=== PATIENT | female | born 1980 | race Caucasian/White ===

== ENCOUNTER 2019-11-23 11:08 | Emergency (ER) | payer OTHER, MEDICAID, SELFPAY ==
[2019-11-23 11:21] VITALS: BP 127/85; PULSE 80; RESP 14; TEMP 36.8; O2SAT 98
--- NOTE | 2019-11-23 11:27 | DI.RAD.S_ITS ---
PROCEDURE: XR FOOT RT MIN 3V INDICATIONS: 5th R toe pain that radiates into foot after trauma TECHNIQUE: 3 views of the foot were acquired. COMPARISON: None. FINDINGS: Bones: There is a moderately displaced oblique fracture of the distal aspect of the proximal phalanx of the 5th digit. Soft tissues: No tibiotalar joint effusion. Achilles tendon appears normal. IMPRESSION: 5th digit fracture. Dictated by: Milton Delgado M.D. on 11/23/2019 at 11:52 Approved by: Milton Delgado M.D. on 11/23/2019 at 11:53
[2019-11-23] MEDS: HYDROCODONE/ACET 5/325 TABLET 1 TAB PO (12:31)
[2019-11-23] MEDS: ONDANSETRON 4 MG ODT SL (12:31)
[2019-11-23 12:52] VITALS: BP 125/83; PULSE 68; RESP 16; O2SAT 98
--- NOTE | 2019-11-23 19:03 | ED_ITS ---
HPI - Extremity Injury (Lower) <CINDY Monique - Last Filed: 11/23/19 23:37> General Chief Complaint: Extremity Injury, Lower Stated Complaint: broke toe, right foot Time Seen by Provider: 11/23/19 12:01 Source: patient Mode of arrival: Ambulatory Limitations: no limitations History of Present Illness HPI Narrative: This is a 38-year-old female, nonsmoker, who has noncontributing medical history presents to ED with chief complain of aspect of mid food and little toe bruise and pain and swelling to affected foot. Patient reports on Saturday night she accidentally hit affected foot on a shoe bench and possibly hooked affected 5th toe on a part of the bench and felt a snap. Patient noticed 5ht toe was deviated outward earlier which appears to be more straightened at this time with swellings. She had used Tylenol, Motrin, ice, and CBD and elevation without much improvement. Patient reports weight bearing and movements increases pain and she has been walking on medial aspect of the foot. Related Data Previous Rx's Medication Instructions Recorded hydrocodone-acetaminophen [Caro] 1 tab PO Q8H PRN #7 tab 11/23/19 ondansetron 4 mg PO BID-TID PRN #7 tab 11/23/19 Allergies Allergy/AdvReac Type Severity Reaction Status Date / Time oxycodone Allergy Severe Vomiting Verified 11/23/19 11:26 latex Allergy Mild Rash Verified 11/23/19 11:26 Review of Systems <CINDY Monique - Last Filed: 11/23/19 23:37> Review of Systems Narrative: General: Denies fever, chills, fatigue, malaise, sweats. Respiratory: Denies dyspnea, cough, wheezing, hemoptysis, sputum. Cardiovascular: Denies chest pain, palpitations, orthopnea, edema. Musculoskeletal: See HPI Skin: See HPI Neurologic: Denies weakness, headache, numbness, change in speech, confusion, seizures, incoordination. Patient History <CINDY Monique - Last Filed: 11/23/19 23:37> Medical History No significant past medical history (Acute) Surgical History No pertinent past surgical history (Acute) Social History Smoking Status: Never smoker Smoking Status: Never smoker alcohol intake frequency: 0-2 drinks per day Substance Use Type: does not use Exam <CINDY Monique - Last Filed: 11/23/19 23:37> Narrative Exam Narrative: General appearance: well developed, well nourished, in no acute distress. Head: normocephalic, atraumatic, no scalp lesions, non-tender. ENT: Hearing grossly intact. Nose without bleeding, purulent discharge. Airway patent. Neck/Thyroid: neck supple, full range of motion, no visible masses or meningeal signs. No JVD, non-tender without lymphadenopathy. Skin: no suspicious rashes, lesions over visible areas. Warm and dry and appropriate color for ethnicity. Heart: no clubbing, no cyanosis, no edema. Lungs: Breathing even and unlabored. No stridor. No accessory muscles used. Able to speak in full sentences. Chest: normal shape and expansion. Abdomen: non-obese, non-distended. Neurologic: alert and oriented. Cognitive exam, DEPUTY SHERIFF/INVESTIGATOR and PNS grossly intact on informal exam. Psych: good eye contact, normal affect. Initial Vital Signs Initial Vital Signs: Vital Signs Temperature 98.3 F 11/23/19 11:21 Pulse Rate 80 11/23/19 11:21 Respiratory Rate 14 11/23/19 11:21 Blood Pressure 127/85 11/23/19 11:21 Pulse Oximetry 98 11/23/19 11:21 Extrem Right lower extremity: ankle Details: normal to inspection, no edema and normal ROM; no tenderness and foot Details: abnormal to inspection, tenderness Location: of another digit Location: the 5th digit and of the mid foot, abnormal ROM of toe Details: pain with active ROM and pain with passive ROM, edema Location: of the dorsal foot, ecchymosis (little toe) and vascular exam Details: dorsalis pedis pulse present and normal capillary refill; no unusual warmth, no laceration and no puncture wound <Pauline Walker DO - Last Filed: 11/28/19 07:29> Initial Vital Signs Initial Vital Signs: Vital Signs Temperature 98.3 F 11/23/19 11:21 Pulse Rate 80 11/23/19 11:21 Respiratory Rate 14 11/23/19 11:21 Blood Pressure 127/85 11/23/19 11:21 Pulse Oximetry 98 11/23/19 11:21 Procedures <Ben DouglasNAHED [email or web address] - Last Filed: 11/23/19 23:37> Orthopedic Splinting/Casting Injury #1: Side: right Lower Extremity Injury Location: toe Lower Extremity Immobilizer: post-op shoe and becki tape Post splinting neuro exam: intact Post splinting vascular exam: intact Scores <Ben DouglasNAHED ruffinP - Last Filed: 11/23/19 23:37> GCS [place] coma scale eye opening: Spontaneous [place] coma scale verbal response: Orientated Mili coma scale motor response: Obey commands Mili coma scale total score: 15 Course <Ben Grullon [facility] - Last Filed: 11/23/19 23:37> Orders Ordered: Discontinued Medications Hydrocodone Bitart/Acetaminophen (Caro 5/325) 1 tab PO NOW ONE Stop: 11/23/19 12:19 Last Admin: 11/23/19 12:31 Dose: 1 tab Documented by: BILLY Ondansetron HCl (Zofran Odt) 4 mg SL NOW ONE Stop: 11/23/19 12:19 Last Admin: 11/23/19 12:31 Dose: 4 mg Documented by: BILLY Vital Signs Vital signs: Vital Signs - 8 hr 11/23/19 11:21 11/23/19 12:52 Temperature 98.3 F Pulse Rate 80 68 Respiratory Rate 14 16 Blood Pressure 127/85 125/83 Pulse Oximetry 98 98 <Pauline Walker DO - Last Filed: 11/28/19 07:29> Orders Ordered: Discontinued Medications Hydrocodone Bitart/Acetaminophen (Caro 5/325) 1 tab PO NOW ONE Stop: 11/23/19 12:19 Last Admin: 11/23/19 12:31 Dose: 1 tab Documented by: BILLY Ondansetron HCl (Zofran Odt) 4 mg SL NOW ONE Stop: 11/23/19 12:19 Last Admin: 11/23/19 12:31 Dose: 4 mg Documented by: BILLY Vital Signs Vital signs: Vital Signs - 8 hr 11/23/19 11:21 11/23/19 12:52 Temperature 98.3 F Pulse Rate 80 68 Respiratory Rate 14 16 Blood Pressure 127/85 125/83 Pulse Oximetry 98 98 MDM - Extremity Injury (Lower) <CINDY Monique - Last Filed: 11/23/19 23:37> Differential Diagnosis Differential diagnosis: Likely fracture of toe and other (foot fracture, contusion) Medical Records Attestation: I reviewed the patient's medical records. Imaging Data XR-Foot RT: Radiologist's Impression: [address] [address] XRay Report Signed Patient: Kyung Edwards MMR#: [id number] : 1980Acct:[id number] Age/Sex: 38 / FDate of Service: 11/23/19 Loc: ED Accession Number: [id number] Procedure: XR foot RT min 3V Ordering Provider: Pauline Walker D.O. PROCEDURE: XR FOOT RT MIN 3V INDICATIONS: 5th R toe pain that radiates into foot after trauma TECHNIQUE: 3 views of the foot were acquired. COMPARISON: None. FINDINGS: Bones: There is a moderately displaced oblique fracture of the distal aspect of the proximal phalanx of the 5th digit. Soft tissues: No tibiotalar joint effusion. Achilles tendon appears normal. IMPRESSION: 5th digit fracture. Dictated by: Milton Delgado M.D. on 11/23/2019 at 11:52 Approved by: Milton Delgado M.D. on 11/23/2019 at 11:53 [facility] Narrative Medical decision making narrative: This is a 38 year female who presents to ED with right foot little toe pain and bruise and mid foot pain after she accidentally hit the affected foot on a shoe bench 3 days ago. She had used RICE therapy with [id number] Motrin and Tylenol around the clock without much improvement. She was hoping to be seen by her primary care physician but unable to and she is here today. Foot x-ray test shows moderately displaced oblique fracture of the distal aspect of the proximal balance of 5th toe. Affected foot was becki-taped and provided post surgical orthoshoes. She declined cruthes at this time. Patient advised to use [id number] Tylenol or Motrin as needed for discomfort and Caro for severe pain along narcotic pain medication precautions. Patient states she has on established orthopedic provider in [facility] and would like to follow-up. Patient provided with CD disc of x-ray and advised to follow-up in next couple of days. Return precautions were discussed with patient and patient verbalized understanding and agreement with treatment plan. Discharge Plan Departure Patient Disposition: Home Clinical Impression: Fracture of toe of right foot Qualifiers: Encounter type: initial encounter Toe: lesser toe Fracture type: closed Phalanx: unspecified phalanx Fracture alignment: displaced Qualified Code(s): S92.501A - Displaced unspecified fracture of right lesser toe(s), initial encounter for closed fracture Discharge Date/Time: 11/23/19 12:54 Instructions: DI for Toe Fracture Activity Restrictions/Additional Instructions: You have been diagnosed with [the right 5th toe mildly displaced fracture.]. What to do: *Take your medications as directed. You can continue to use [id number] Tylenol and or Motrin as needed for pain. Tylenol 650-1000 mg up to 3 to 4 times a day as needed for pain. Ibuprofen 400 mg to 600 mg up to 3 to 4 times a day as needed for pain with food to decrease GI irritation. As an adult, you can take up to 3-4000 mg Tylenol in 24 hour. Caro for severe pain. It can cause drowsiness and constipation so please take precautions not driving, drinking alcohol, or operating heavy equipments. Zofran as needed for nausea. Continue with RICE therapy. Please use ortho shoes for immobilization and splint and becki tape. *Follow up with your primary care provider in 2-3 days, call for an appointment. Follow-up with your ortho provider in [facility]. Let them know you were seen in the ED and that we asked you to be seen in follow up. *Return to ED if you have any new, worsening, or concerning symptoms, such as [worsening pain, increasing swelling, tingling/numbness/weakness to injure side, chest pain, breathing difficulty, unable to tolerate fluids or any acute concerns]. Prescriptions: New hydrocodone-acetaminophen [Caro] 5-325 mg tablet 1 tab PO Q8H PRN (Reason: pain) Qty: 7 RF: 0 ondansetron 4 mg tablet,disintegrating 4 mg PO BID-TID PRN (Reason: nausea and vomiting) Qty: 7 RF: 0 <Pauline Botnick, DO - Last Filed: 11/28/19 07:29> Cosign ED Attending Cosignature Attestation: I was immediately available in the department for consultation. Documentation has been reviewed. I agree with assessment and plan.
== END 2019-11-23 12:54 | disposition home or self-care (01) ==
PROVIDERS: Emergency Provider Nurse Practitioner Family
DX: S92.501A Displaced unspecified fracture of right lesser toe(s), initial encounter for closed fracture (principal); W22.03XA Walked into furniture, initial encounter
CPT/HCPCS: 73630; 99283

== ENCOUNTER → 2020-05-04 16:36 | Outpatient (CLI) | payer OTHER, MEDICAID, SELFPAY ==
--- NOTE | 2020-05-04 16:38 | DI.CT.S_ITS ---
PROCEDURE: CT LE RT WO CON INDICATIONS: PRIMARY OSTEOARTHRITIS, UNSPECIFED ANKLE AND FOOT TECHNIQUE: Noncontrast 1-1.5 mm axial sections acquired from above the tibiotalar joint to the bottom of the calcaneus, with coronal and sagittal reformats. COMPARISON: [facility], CR, XR FOOT 3 VIEWS WEIGHT BEARING RIGHT, 03/30/2020, 16:26. [facility], RG, FOOT COMP MIN 3VW (RT), 12/31/2019, 12:58. FINDINGS: Image quality: Excellent. Bones: Moderate tibiotalar joint osteoarthritic changes are seen with joint space narrowing, subchondral sclerosis and marginal osteophyte formation. Subcortical radiolucent area is noted involving lateral weight-bearing portion of talar dome concerning for tiny osteochondral lesions measures in aggregate 3 mm in size. Similar 2-3 mm osteochondral lesions also noted in adjacent lateral portion of distal tibial plafond. Moderate subtalar joint osteoarthritic changes are seen more prominent involving medial facet. No osseous hindfoot coalition is seen. Mild to moderate osteoarthritic changes also seen involving talonavicular joint, navicular cuneiform joints and calcaneocuboid joint. No acute fracture or dislocation. No suspicious intraosseous lesion. No gross bony erosive changes. Soft tissues: There is mild ankle soft tissue swelling. Small tibiotalar joint effusion is seen, no abnormal soft tissue calcification. No intra-articular loose body. Plantar fascia is grossly intact. Achilles tendon is intact. Extensor, and flexor tendons shows no evidence of tendon tear. Fluid distending peroneus tendon sheath is seen suggestive of tenosynovitis. IMPRESSION: 1. Moderate osteoarthritic changes involving ankle , midfoot and hindfoot joints. Suggestion of 2-3 mm osteochondral lesions involving lateral weight-bearing portion of talar dome and adjacent lateral portion of distal tibial plafond. No suspicious intraosseous lesion. No acute fracture or dislocation. No osseous hindfoot coalition. 2. Mild ankle soft tissue swelling and small amount of tibiotalar joint effusion. No abnormal soft tissue calcifications. 3. Suggestion of moderate tenosynovitis involving peroneus tendons. No full-thickness ankle tendon rupture. Dictated by: Jose Hickman M.D. on 05/05/2020 at 10:53 Approved by: Jose Hickman M.D. on 05/05/2020 at 11:06
== END ==
PROVIDERS: Referring Provider Orthopaedic Surgery Foot and Ankle Surgery; Visit Provider Orthopaedic Surgery Foot and Ankle Surgery
DX: M19.079 Primary osteoarthritis, unspecified ankle and foot (principal); M79.89 Other specified soft tissue disorders; M25.471 Effusion, right ankle
CPT/HCPCS: 73700